=== PATIENT | male | born 1960 | race Caucasian/White ===

== ENCOUNTER 2024-03-11 18:23 | Emergency (ER) | payer OTHER, SELFPAY ==
[2024-03-11] VITALS (21 sets, daily range): BP systolic 60–103; BP diastolic 26–68; PULSE 32–60; RESP 16–29; TEMP 37; O2SAT 91–98
--- NOTE | ~2024-03-11 | XR_ITS ---
EXAMINATION: XR chest 1V portable Exam Date/Time: 03/11/2024 18:40 CDT HISTORY: bradycardia Comparison: 10/09/2019. RESULT: Lines, tubes, and devices: None. Lungs and pleura: Low volumes crowding. Moderate diffuse interstitial and groundglass opacities. Min imal bibasilar atelectasis/scar. Cardiomediastinal silhouette: Stable. Other: No acute osseous or upper abdominal finding. IMPRESSION: Pulmonary opacities may represent moderate interstitial edema in the appropriate clinical context. In fection is not excluded. Reviewed, dictated and finalized at location K. IMPRESSION: Pulmonary opacities may represent moderate interstitial edema in the appropriat e clinical context. Infection is not excluded.
--- NOTE | 2024-03-11 18:48 | ED.GENADULT ---
HPI - General Adult General Chief complaint: Weakness Stated complaint: lethargy Time Seen by Provider: 03/11/24 18:34 History of Present Illness HPI narrative: 64 old male presenting emergency department for evaluation for increased generalized weakness and shortness of breath. Patient does have known liver failure and had previously followed up at [facility] in order to have a liver transplant. Patient states he does not currently follow-up with his liver specialist because he did not agree with their medical plan. Related Data Home Medications Medication Instructions Recorded Confirmed aspirin 81 mg tablet,delayed 81 mg PO DAILY 10/08/19 10/08/19 release (Adult Low Dose Aspirin) omeprazole 20 mg capsule,delayed 20 mg PO DAILY 10/08/19 10/08/19 release sertraline 100 mg tablet 100 mg PO DAILY 10/08/19 10/08/19 Allergies Allergy/AdvReac Type Severity Reaction Status Date / Time No Known Allergies Allergy Unverified 01/16/14 12:56 Review of Systems Review of Systems: All systems reviewed & are unremarkable except as noted in HPI and below PMFSH Past Medical History Medical History (Updated 03/15/24 @ 11:08 by Dallas Balderas MD) Depression GERD (gastroesophageal reflux disease) Hypertension MARILY on CPAP Surgical History Surgical History H/O vasectomy No history of previous surgery Family History Family History Mother Acute myocardial infarction Father Acute myocardial infarction Social History Social History Smoking status: Never smoker Alcohol intake: current Drinks per week: 5 Alcohol use details: Sporadic Substance use: never Living arrangements: with family Gender identity (if verbalized by the patient): Male Spiritual care concerns: No Agree to blood products: Yes Exam Narrative: APPEARANCE: Well appearing, no pain, no distress, well-nourished. HEAD: normocephalic, atraumatic. EYES: Scleral icterus NOSE: Normal no drainage EARS:TMS clear with good light reflex. THROAT: Pharynx clear, no exudate. NECK: Supple. No adenopathy, no masses. RESPIRATORY: Airway patent, respirations nonlabored. Clear to auscultation bilaterally, no rales, rhonchi, wheezing. CARDIOVASCULAR: Regular rate and rhythm without murmurs rubs or gallops. ABDOMINAL: Soft, nontender, nondistended, normal bowel sounds MUSCULOSKELETAL: Moves all extremities. Strength/ROM intact, No edema, No calf tenderness. NEURO: Confused but no focal neuro deficits SKIN: Very jaundiced Course Vital Signs Vital signs: Vital Signs Pulse Rate 32 L 03/11/24 18:24 Respiratory Rate 24 H 03/11/24 18:24 Blood Pressure 83/44 L 03/11/24 18:24 Pulse Oximetry 95 03/11/24 18:24 Oxygen Delivery Room Air 03/11/24 18:24 Temperature 98.6 F 03/11/24 18:50 Pulse Rate 60 03/11/24 23:31 Respiratory Rate 16 03/11/24 23:31 Blood Pressure 103/51 L 03/11/24 23:31 Pulse Oximetry 92 03/11/24 23:00 Oxygen Delivery Room Air 03/11/24 18:50 Procedures Central Line Placement Right Femoral: Discussed w/ the patient/family/POA,the placement of a central venous catheter, including its clinical necessity/indication & associated potential risks, benifits and alternatives.: Yes Time Out Performed: Yes Patient Placed on Monitor/Pulse Ox: Yes Max. Sterile Barrier Technique: Caps, large sterile sheet and hand hygiene Central Line Prep: 2% chlorhexidine scrub and sterile drapes applied Technique: US-Guided Local Anesthetic: lidocaine 1% Amount of anesthesia used (mL): 5 Ultrasound Used for Placement: Yes Central Line Lumen Inserted: triple Post Procedure: sutured in place Post Procedure X-Ray: tip of catheter in good position Patient Shirley
[2024-03-11 19:40] LABS: Basophils Absolute Auto 0.1 K/mm3 (0.0-0.1); Basophils Percent Auto 0.8 % (0.2-1.2); Eosinophils Absolute Auto 0.6 K/mm3 (0-0.3); Eosinophils Percent Auto 4.3 % (0-4.4); Hemoglobin 10.9 g/dL (14.0-18.0); Immature Granulocyte Absolute 0.63 K/mm3 (0.00-0.031); Immature Granulocyte Percent A 4.4 % (0-0.5); Immature Platelet Fraction Pct 8.8 % (0.9-11.2); Lymphocytes Absolute Auto 0.93 K/mm3 (0.9-3.2); Lymphocytes Percent Auto 6.5 % (18.3-44.2); Mean Corpuscular Hemoglobin 34.9 pg (26-34); Mean Corpuscular Volume 105.8 fl (80-100); Mean Platelet Volume 12.4 fl (7.4-10.4); Monocytes Absolute Auto 1.6 K/mm3 (0.1-0.6); Neutrophils Absolute Auto 10.5 K/mm3 (1.3-6.7); Platelet Count Result 80 k/mm3 (150-375); Red Blood Count 3.12 M/mm3 (4.6-6.20); Red Cell Distribution Width 15.8 % (11.5-14.5); White Blood Count 14.3 K/mm3 (4.5-10.0)
[2024-03-11 19:52] LABS: Alanine Aminotransferase 67 U/L (6-50); Albumin Level 3.2 g/dL (3.5-5.1); Alkaline Phosphatase 147 U/L (38-126); Anion Gap 11 mmol/L (4-12); Aspartate Amino Transferase 126 U/L (17-59); Bilirubin,Total 24.1 mg/dL (0.2-1.3); Blood Urea Nitrogen 77 mg/dL (9-20); Calcium 8.8 mg/dL (8.4-10.2); Carbon Dioxide 20 mmol/L (22-30); Chloride 100 mmol/L (98-107); Estimated CRCL calculation 28 ml/min; Estimated Glomerular Filt Rate 23; Glucose 127 mg/dL (65-110); Lipase 419 U/L (23-300); Magnesium 2.4 mg/dL (1.6-2.3); Potassium 5.6 mmol/L (3.4-5.0); Sodium 131 mmol/L (137-145)
[2024-03-11 20:02] LABS: INR 1.6; Prothrombin Time 20.5 Seconds (11.1-14.7)
[2024-03-11 20:03] LABS: Partial Thromboplastin Time 37.1 Seconds (22.3-36.8)
[2024-03-11 20:05] LABS: Ammonia 18 umol/L (9-30)
[2024-03-11] MEDS: NOREPINEPHRINE 8 MG/D5W 250 ML 8 MG/250 ML BAG 18.75 MG IV CONT (20:16)
[2024-03-11] MEDS: ALBUTEROL SULFATE NEB 2.5 MG/3 ML INH 10 MG INHALATION (20:40)
[2024-03-11] MEDS: SODIUM BICARBONATE 8.4% 50 MEQ/50 ML SYRINGE IV PUSH (20:51)
[2024-03-11] MEDS: INSULIN HUMAN REGULAR (*BKC) 100 UNITS/ML 8 UNITS IV PUSH (20:52)
[2024-03-11] MEDS: DEXTROSE 50% 25 GM/50 ML SYRINGE IV PUSH (20:52)
[2024-03-11] MEDS: CALCIUM GLUC 1,000 MG/NS 50 ML 1,000 MG/50 ML BAG 100 MG IVPB (21:13)
[2024-03-11] MEDS: VANCOMYCIN 1,500 MG/NS 500 ML 1,500 MG/500 ML BAG 250 MG IVPB (21:28)
[2024-03-11] MEDS: CEFEPIME 1 GM/NS 50 ML 1 GM/50 ML BAG IVPB (21:28)
[2024-03-11 22:57] LABS: MRSA (PCR) NOT DETECTED (NOT DETECTE)
== END 2024-03-11 23:45 | disposition short-term general hospital (02) ==
PROVIDERS: Emergency Provider Emergency Medicine; PCP Internal Medicine
DX: I95.9 Hypotension, unspecified (principal); K72.90 Hepatic failure, unspecified without coma; I10 Essential (primary) hypertension; K21.9 Gastro-esophageal reflux disease without esophagitis; G47.33 Obstructive sleep apnea (adult) (pediatric); F32.A Depression, unspecified; Z79.82 Long term (current) use of aspirin; R91.8 Other nonspecific abnormal finding of lung field
CPT/HCPCS: 36415; 36556; 71045; 80053; 82140; 83605; 83690; 83735; 85025; 85055; 85610; 85730; 87641; 94640; 96365; 96366; 96367; 96375; 99285; C1751; J0612; J0692; J1815; J3370

== ENCOUNTER 2024-03-20 08:56 | Emergency (ER) | payer OTHER, SELFPAY ==
[2024-03-20] VITALS (14 sets, daily range): BP systolic 69–109; BP diastolic 29–61; PULSE 0–82; RESP 0–27; TEMP 36.7; O2SAT 0–100
--- NOTE | 2024-03-20 09:01 | ECG_ITS ---
SEE SCANNED COPY FOR CONFIRMED REPORT MTDD
--- NOTE | 2024-03-20 09:01 | PC.NURSE ---
pupils fixed and dilated on arrival, being bagged on arrival through [employer].
--- NOTE | 2024-03-20 09:15 | ED.CPR ---
HPI - CPR General Chief Complaint: Cardiac Arrest/CPR Stated Complaint: post cardiac arrest Time Seen by Provider: 03/20/24 09:00 History of Present Illness HPI narrative: Patient is a 64-year-old male who presents ER after having a witnessed cardiac arrest at home. Bystander CPR started. EMS arrived and took over. It was reported that patient had a DNR but the POA wanted everything performed at that time. Patient with known chronic liver disease. He was supposed to go to his PCPs office today. Family reports that this was to discuss hospice. Patient received multiple rounds of epinephrine and then had return of spontaneous circulation which was then lost and then returned again after additional epinephrine administration. He has a supraglottic airway in place and is being bagged. Related Data Home Medications Medication Instructions Recorded Confirmed aspirin 81 mg tablet,delayed 81 mg PO DAILY 10/08/19 10/08/19 release (Adult Low Dose Aspirin) omeprazole 20 mg capsule,delayed 20 mg PO DAILY 10/08/19 10/08/19 release sertraline 100 mg tablet 100 mg PO DAILY 10/08/19 10/08/19 Allergies Allergy/AdvReac Type Severity Reaction Status Date / Time No Known Allergies Allergy Unverified 01/16/14 12:56 Review of Systems Review of Systems: ROS unobtainable: Yes unobtainable due to medical condition PMFSH Past Medical History Medical History (Updated 03/20/24 @ 19:30 by Misbah Jacobson MD) Depression GERD (gastroesophageal reflux disease) Hypertension AMRILY on CPAP Surgical History Surgical History H/O vasectomy No history of previous surgery Family History Family History Mother Acute myocardial infarction Father Acute myocardial infarction Social History Social History Smoking status: Never smoker Alcohol intake: current Drinks per week: 5 Alcohol use details: Sporadic Substance use: never Living arrangements: with family Gender identity (if verbalized by the patient): Male Spiritual care concerns: No Agree to blood products: Yes Exam Narrative: GENERAL: Chronically ill-appearing, well-nourished. HEAD: Normocephalic, atraumatic. EYES: Pupils fixed and mid dilated at 12 mm. scleral icterus ENT: Mucous membranes moist. CHEST: Clear to auscultation. patient spontaneously breathing but requiring supplemental bagging. HEART: Regular rate and rhythm. Normal peripheral pulses. ABDOMEN: Soft, nontender, nondistended. EXTREMITIES: No deformity or spontaneous movement. 2+ edema. SKIN: Warm, dry, Jaundice NEURO: patient with intact gag but no response to sternal rub. absent corneal reflex Course Course Emergency Course: I have been in the family room and spoken with the patient's Michelle who is the POA as well as their son Rei. We have gone over the DNR paperwork that the patient has. Patient does not wish to be on a ventilator nor have invasive procedures performed. After this discussion decision has been made to withdrawal of the i-gel supraglottic airway and provide comfort care. They would like to wait for a promotions representative or fountain manager to arrive before the tube was removed. 0933: I-Gel removed with family at bedside As he was gagging on it and looked uncomfortable. Junior Java Developer not immediately available they feel comfortable having the ER we removed. 1019: Patient received morphine 12 mg total as well as Ativan 1 mg total. Patient at 10:16 a.m. with family at bedside. 1038: Discussed with Dr. Barkley his PCP, he feels comfortable signing the certificate. Vital Signs Vital signs: Vital Signs Pulse Rate 82 03/20/24 09:03 Respiratory Rate 20 03/20/24 09:03 Blood Pressure 109/61 03/20/24 09:03 Pulse Oximetry 99 03/20/24 09:03 Temperature 98.0 F
[2024-03-20] MEDS: MORPHINE SULFATE (*CRX) 4 MG/ML INJ IV PUSH ×3 (09:19→09:44)
[2024-03-20 09:26] LABS: Acetaminophen < 10 ug/mL (10-30); Ammonia 59 umol/L (9-30); Ethanol < 10 mg/dL (<10)
--- NOTE | 2024-03-20 09:34 | PC.NURSE ---
0933 [facility] removed per MD [place].
[2024-03-20 09:35] LABS: Alanine Aminotransferase 61 U/L (6-50); Albumin Level 3.2 g/dL (3.5-5.1); Alkaline Phosphatase 125 U/L (38-126); Anion Gap 14 mmol/L (4-12); Aspartate Amino Transferase 120 U/L (17-59); Bilirubin Direct 3.6 mg/dL (0-0.3); Bilirubin,Total 13.8 mg/dL (0.2-1.3); Blood Urea Nitrogen 81 mg/dL (9-20); Calcium 8.9 mg/dL (8.4-10.2); Carbon Dioxide 12 mmol/L (22-30); Chloride 105 mmol/L (98-107); Estimated Glomerular Filt Rate 16; Glucose 144 mg/dL (65-110); Potassium 7.1 mmol/L (3.4-5.0); Sodium 131 mmol/L (137-145)
[2024-03-20 09:36] LABS: Lactic Acid Reflex 7.3 mmol/L (0.7-2.0)
[2024-03-20] MEDS: LORazepam INJ (*CRX) 2 MG/ML VIAL 1 MG IV PUSH (09:39)
[2024-03-20 09:42] LABS: Troponin I 0.717 ng/mL (0.000-0.034)
[2024-03-20 09:50] LABS: INR 2.2; Prothrombin Time 25.7 Seconds (11.1-14.7)
[2024-03-20 09:52] LABS: Partial Thromboplastin Time 72.1 Seconds (22.3-36.8)
--- NOTE | 2024-03-20 10:17 | PC.NURSE ---
Time of called by MD Jacobson at 1016.
--- NOTE | 2024-03-20 12:09 | PC.NURSE ---
[facility] [place] body released to home at this time.
[2024-03-20 12:15] LABS: Reflex Lactic Acid Yes or No Add Lactic
== END 2024-03-20 12:11 | disposition expired ==
PROVIDERS: Emergency Provider Emergency Medicine; PCP Internal Medicine
DX: I46.9 Cardiac arrest, cause unspecified (principal); K72.10 Chronic hepatic failure without coma; E87.5 Hyperkalemia; I10 Essential (primary) hypertension; K21.9 Gastro-esophageal reflux disease without esophagitis; G47.33 Obstructive sleep apnea (adult) (pediatric); F32.A Depression, unspecified; Z66 Do not resuscitate; Z79.82 Long term (current) use of aspirin; Z79.899 Other long term (current) drug therapy
CPT/HCPCS: 36415; 36600; 80053; 80307; 82140; 82248; 83605; 84484; 85610; 85730; 92950; 93005; 96374; 96375; 99285; J2060; J2270